=== PATIENT | male | born 1985 | race Caucasian/White ===

== ENCOUNTER 2016-09-06 18:37 | Emergency (ER) | payer SELFPAY ==
[~2016-09-06] VITALS: Ht 177.8 cm; Wt 97.2 kg
[2016-09-06] MEDS ORDERED: MORPHINE SULFATE 4 MG/ML, 1ML ONE ×2 (18:53→19:54)
[2016-09-06] MEDS ORDERED: ONDANSETRON 2MG/ML, 2ML ONE (18:53)
[2016-09-06] MEDS: MORPHINE SULFATE 4 MG/ML, 1ML IVPush PRN ×2 (19:00→20:01)
[2016-09-06] MEDS ORDERED: ONDANSETRON 2MG/ML, 2ML IVPush ONE (19:00)
[2016-09-06] MEDS ORDERED: SODIUM CHLORIDE FLUSH 10ML SYR IVF ONE (19:00)
[2016-09-06] MEDS ORDERED: SODIUM CHLORIDE 0.9% 1,000ML IV ONE (19:00)
[2016-09-06 19:16] LABS: ASPARTATE AMINO TRANSFERASE 11 U/L (15-37); BLOOD UREA NITROGEN 17 mg/dL (7-18)
[2016-09-06] MEDS ORDERED: KETOROLAC 30 MG/1 ML IVPush ONE (20:30)
[2016-09-06] MEDS ORDERED: KETOROLAC 30 MG/1 ML ONE (20:32)
[2016-09-06 21:35] VITALS: BP 126/62
== END 2016-09-06 21:37 | disposition home or self-care (01) ==
LOC: ED 21:00
DX: N20.0 Calculus of kidney (principal); E66.9 Obesity, unspecified; F12.10 Cannabis abuse, uncomplicated
CPT/HCPCS: 36415; 74176; 80053; 81001; 83690; 85025; 87491; 87591; 96361; 96374; 96375; 96376; 99285; J1885; J2405; J7030